=== PATIENT | female | born 1990 | race Caucasian/White ===

== ENCOUNTER 2017-02-28 08:51 | Inpatient (IN) | payer OTHER ==
[~2017-02-28] VITALS: Ht 154.9 cm; Wt 87.1 kg
[2017-02-28] VITALS (26 sets, daily range): BP systolic 112–168; BP diastolic 58–93
[~2017-02-28 08:51] MED LIST: ABILIFY10 MG PO; LEXAPRO20 MG PO
[2017-02-28 11:24] LABS: EOSINOPHIL (%) 0.2 % (0-5); HEMATOCRIT 35.2 % (36.0-46.0); IMMATURE GRANULOCYTE (%) 0.5 % (0.0-0.7); INSTRUMENT ABS NEUTROPHIL CT 4.3 K/uL; LYMPHOCYTE COUNT 0.9 K/uL (1.0-2.8); MCH 27.3 PG (29.0-34.0); MCHC 31.8 G/DL (30.0-36.0); MCV 85.6 FL (83-99); MEAN PLAT.VOLUME 13.2 uM^3 (9.5-12.4); MONOCYTE (%) 7.1 % (3-12); MONOCYTE COUNT 0.4 K/uL (0-0.8); NEUTROPHIL (%) 75.6 % (45-76); NEUTROPHIL COUNT 4.3 K/uL (1.8-6.4); PLATELET COUNT 152 K/uL (156-360); RBC DIS.WIDTH-CV 14.1 % (11.8-14.6); RBC DIS.WIDTH-SD 43.8 % (39-53); RED BLOOD COUNT 4.11 M/uL (3.80-5.20); WHITE BLOOD COUNT 5.6 K/uL (4.1-10.2)
[2017-03-01 00:59] VITALS: BP 132/72
[2017-03-01] MEDS ORDERED: PRENATAL TABLE1 EAC3 PO (05:20)
[2017-03-01 06:40] LABS: EOSINOPHIL (%) 0 % (0-5); HEMATOCRIT 32.7 % (36.0-46.0); IMMATURE GRANULOCYTE (%) 0.3 % (0.0-0.7); INSTRUMENT ABS NEUTROPHIL CT 9.4 K/uL; LYMPHOCYTE COUNT 1.3 K/uL (1.0-2.8); MCH 26.1 PG (29.0-34.0); MCHC 30.6 G/DL (30.0-36.0); MCV 85.4 FL (83-99); MEAN PLAT.VOLUME 13.4 uM^3 (9.5-12.4); MONOCYTE (%) 7.1 % (3-12); MONOCYTE COUNT 0.8 K/uL (0-0.8); NEUTROPHIL (%) 81.2 % (45-76); NEUTROPHIL COUNT 9.4 K/uL (1.8-6.4); PLATELET COUNT 140 K/uL (156-360); RBC DIS.WIDTH-CV 14.1 % (11.8-14.6); RBC DIS.WIDTH-SD 43.8 % (39-53); RED BLOOD COUNT 3.83 M/uL (3.80-5.20); WHITE BLOOD COUNT 11.6 K/uL (4.1-10.2)
[2017-03-01 07:29] VITALS: BP 125/69
[2017-03-01 15:25] VITALS: BP 130/77
[2017-03-02 07:44] VITALS: BP 129/71
[2017-03-02 16:45] VITALS: BP 133/74
== END 2017-03-02 17:30 | disposition home or self-care (01) | DRG 775 ==
LOC: LDRP-OP 08:51 → 2WEST 08:52 → LDRP-OP 09:28 → 2WEST 22:00 → LDRP-OP 03-24 16:39
PROVIDERS: Advanced Practice Midwife
PROC: 10E0XZZ Delivery of Products of Conception, External Approach (ICD-10-PCS; principal; 2017-02-28)
PROC: 3E0P7VZ Introduction of Hormone into Female Reproductive, Via Natural or Artificial Opening (ICD-10-PCS; principal; 2017-02-28)
PROC: 3E0R3BZ Introduction of Anesthetic Agent into Spinal Canal, Percutaneous Approach (ICD-10-PCS; principal; 2017-02-28)
PROC: 00HU33Z Insertion of Infusion Device into Spinal Canal, Percutaneous Approach (ICD-10-PCS; principal; 2017-02-28)
PROC: 3E0P3VZ Introduction of Hormone into Female Reproductive, Percutaneous Approach (ICD-10-PCS; principal; 2017-02-28)
DX: O48.0 Post-term pregnancy (principal); Z3A.41 41 weeks gestation of pregnancy; Z37.0 Single live birth; O99.214 Obesity complicating childbirth; E66.9 Obesity, unspecified; Z68.32 Body mass index [BMI] 32.0-32.9, adult; O99.340 Other mental disorders complicating pregnancy, unspecified trimester; F32.9 Major depressive disorder, single episode, unspecified
CPT/HCPCS: 85025; 90686; C1755; J0595; J3010; J7120

== ENCOUNTER 2017-06-01 10:59 | Day surgery (SDC) | payer OTHER ==
[~2017-06-01] VITALS: Ht 157.5 cm; Wt 76.0 kg
[~2017-06-01 10:59] MED LIST changes: +BUSPAR15 MG PO; +PRENATAL TABLE1 EAC3 PO; +TYLENOL EXTRA500 MG PO
[2017-06-01 11:27] VITALS: BP 117/69
[2017-06-01] MEDS ORDERED: ENDOCET 5-3251 EACH PO (13:52)
[2017-06-01 14:45] VITALS: BP 122/73
[2017-06-01 15:49] VITALS: BP 123/71
[2017-06-01 16:24] VITALS: BP 122/81
== END 2017-06-01 16:47 | disposition home or self-care (01) ==
LOC: SDC
PROC: 0U574ZZ Destruction of Bilateral Fallopian Tubes, Percutaneous Endoscopic Approach (ICD-10-PCS; principal; 2017-06-01)
DX: Z30.2 Encounter for sterilization (principal); F31.9 Bipolar disorder, unspecified; E66.9 Obesity, unspecified; Z68.28 Body mass index [BMI] 28.0-28.9, adult
CPT/HCPCS: J1100; J1885; J2250; J2405; J2710; J3010; Q0175; S0020